=== PATIENT | female | born 1990 | race Two or more races ===

== ENCOUNTER 2019-09-30 16:47 | Inpatient (IN) | payer OTHER ==
[~2019-09-30] VITALS: Ht 162.6 cm; Wt 68.0 kg
[~2019-09-30 16:47] MED LIST: DEXAMETHASONE SOD PHOS 4 MG/ML VIAL IVP ONE; EPHEDrine SULFATE 50 MG/ML VIAL IM ONE; KETOROLAC TROMETHAMINE 60 MG/2 ML VIAL IM ONE; LIDOCAINE/PF 2% 5 ML VIAL INJ ONE; METOCLOPRAMIDE HCL 5 MG/ML 2 ML VIAL IVP ONE; ONDANSETRON HCL 4 MG/2 ML VIAL IVP ONE; OXYTOCIN 10 UNITS/ML VIAL IM ONE; RINGERS SOLUTION,LACTATED 1,000 ML IV SCH
[2019-09-30 17:58] VITALS: BP 106/64
[2019-09-30] MEDS ORDERED: RINGERS SOLUTION,LACTATED 1,000 ML IV ONE (19:53)
[2019-09-30] MEDS ORDERED: CITRIC ACID/SODIUM CITRATE 30 ML SOLUTION UDCUP PO ONE (20:00)
[2019-09-30] MEDS ORDERED: METOCLOPRAMIDE HCL 5 MG/ML 2 ML VIAL IVP ONE (20:00)
[2019-09-30 20:16] LABS: BASOPHILS % (AUTO) 0.5 % (0.0-2.0); EOSINOPHILS % (AUTO) 0.2 % (1.0-6.0); HEMATOCRIT 36.6 % (36-46); HEMOGLOBIN 11.9 g/dL (12.0-16.0); LYMPHOCYTES # (AUTO) 1.7 K/uL (1.0-4.8); LYMPHOCYTES % (AUTO) 22.9 % (22.0-44.0); MEAN CORPUSCULAR HEMOGLOBIN 27.7 pg (26.0-34.0); MEAN CORPUSCULAR HGB CONC 32.5 G/dL (31.0-37.0); MEAN CORPUSCULAR VOLUME 85 fL (80-100); MONOCYTES # (AUTO) 0.6 K/uL (0.1-1.0); MONOCYTES % (AUTO) 7.9 % (2.0-9.0); NEUTROPHILS # (AUTO) 5.1 K/uL (1.8-7.7); NEUTROPHILS % (AUTO) 68.5 % (40.0-70.0); PLATELET COUNT (AUTO)-OB 275 K/uL (150-450); RED CELL DISTRIBUTION WIDTH 14.4 % (11.5-14.5)
[2019-09-30] MEDS ORDERED: FentaNYL CITRATE-PF 100 MCG/2 ML VIAL ONE (20:22)
[2019-09-30] MEDS ORDERED: MIDAZOLAM HCL 2 MG/2 ML VIAL ONE (20:22)
[2019-09-30] MEDS ORDERED: MORPHINE SULFATE/PF 1 MG/ML 10 ML AMP ONE (20:23)
[2019-09-30] MEDS ORDERED: BUPIVACAINE HCL/DEX-WATER/PF 0.75% 2 ML AMP ONE (20:23)
[2019-09-30] MEDS ORDERED: LANOLIN 7 GM OINTMENT TP PRN (20:30)
[2019-09-30] MEDS ORDERED: TRIAMCINOLONE ACETONIDE 40 MG/ML VIAL IM ONE (20:30)
[2019-09-30] MEDS ORDERED: OxyCODONE HCL/ACETAMINOPHEN 5-325 MG TABLET PO PRN ×2 (20:30→21:00)
[2019-09-30] MEDS ORDERED: OXYTOCIN 30 UNITS/LACT RINGERS 500 ML IV ONE (20:30)
[2019-09-30] MEDS ORDERED: ACETAMINOPHEN 1000 MG/ISO-OSM 100 ML IV ONE (21:00)
[2019-09-30] MEDS ORDERED: ONDANSETRON HCL 4 MG/2 ML VIAL IVP PRN (21:00)
[2019-09-30] MEDS ORDERED: NALOXONE HCL 0.4 MG/ML VIAL IVP PRN (21:00)
[2019-09-30] MEDS ORDERED: DiphenhydrAMINE HCL 50 MG/ML VIAL IVP PRN (21:00)
[2019-10-01] MEDS ORDERED: KETOROLAC TROMETHAMINE 30 MG/ML VIAL ONE (00:04)
[2019-10-01] MEDS: KETOROLAC TROMETHAMINE 30 MG/ML VIAL IVP SCH ×4 (00:08→18:19)
[2019-10-01] MEDS ORDERED: PREN-134 PO (00:53)
[2019-10-01] MEDS ORDERED: INFLUENZA VIRUS VACCINE QVS 2019-20 (3YR+)/PF 60 MCG/0.5 ML SYRINGE IM ONE (01:30)
[2019-10-01] MEDS: RINGERS SOLUTION,LACTATED 1,000 ML IV SCH ×2 (03:08→09:42)
[2019-10-01 06:41] LABS: BASOPHILS % (AUTO) 0.3 % (0.0-2.0); EOSINOPHILS % (AUTO) 0 % (1.0-6.0); HEMATOCRIT 33.9 % (36-46); HEMOGLOBIN 11.1 g/dL (12.0-16.0); LYMPHOCYTES # (AUTO) 0.9 K/uL (1.0-4.8); LYMPHOCYTES % (AUTO) 7.9 % (22.0-44.0); MEAN CORPUSCULAR HGB CONC 32.9 G/dL (31.0-37.0); MEAN CORPUSCULAR VOLUME 85 fL (80-100); MONOCYTES # (AUTO) 0.3 K/uL (0.1-1.0); MONOCYTES % (AUTO) 2.7 % (2.0-9.0); NEUTROPHILS # (AUTO) 10.5 K/uL (1.8-7.7); PLATELET COUNT (AUTO)-OB 236 K/uL (150-450); RED BLOOD CELL COUNT(AUTO) 3.98 MIL/uL (4.00-5.20); RED CELL DISTRIBUTION WIDTH 14.2 % (11.5-14.5)
[2019-10-01 06:44] LABS: NEUTROPHILS % (AUTO) 89.1 % (40.0-70.0)
[2019-10-01] MEDS ORDERED: OXYGEN THERAPY IH SCH ×2 (08:00)
[2019-10-01] MEDS: MAGNESIUM HYDROXIDE SUSPENSION 30 ML UDCUP PO SCH ×2 (09:00→16:37)
[2019-10-01] MEDS: CYCLOBENZAPRINE HCL 10 MG TABLET PO SCH ×3 (09:33→22:00)
[2019-10-02] MEDS: IBUPROFEN 800 MG TABLET PO PRN ×2 (00:09→17:03)
[2019-10-02] MEDS: OxyCODONE HCL/ACETAMINOPHEN 5-325 MG TABLET PO PRN ×2 (04:30→15:40)
[2019-10-02] MEDS: MAGNESIUM HYDROXIDE SUSPENSION 30 ML UDCUP PO SCH (21:02)
[2019-10-03] MEDS: IBUPROFEN 800 MG TABLET PO PRN (04:14)
[2019-10-03] MEDS ORDERED: IBUP-2070 PO (10:22)
[2019-10-03] MEDS ORDERED: PERCT PO (10:23)
[2019-10-03] MEDS ORDERED: DOCU-275 PO (10:25)
== END 2019-10-03 11:40 | disposition home or self-care (01) | DRG 785 ==
LOC: 4S 16:47 → OBSVTOIN 16:47 → 4S 10-01 00:30
PROVIDERS: ADMIT Obstetrics & Gynecology; ATTEND Obstetrics & Gynecology
PROC: 10D00Z1 Extraction of Products of Conception, Low, Open Approach (ICD-10-PCS; principal; 2019-09-30)
PROC: 0UB70ZZ Excision of Bilateral Fallopian Tubes, Open Approach (ICD-10-PCS; 2019-09-30)
PROC: 3E02340 Introduction of Influenza Vaccine into Muscle, Percutaneous Approach (ICD-10-PCS; 2019-10-01)
DX: O34.211 Maternal care for low transverse scar from previous cesarean delivery (principal); Z3A.37 37 weeks gestation of pregnancy; Z37.0 Single live birth; Z23 Encounter for immunization
CPT/HCPCS: 76811; 86850; 86900; 86901; 87081; 88302; 90686; J0131; J0690; J1100; J1885; J2250; J2405; J2590; J2765; J3010; J3301; J3490; J7120